=== PATIENT | male | born 1985 | race Caucasian/White ===

== ENCOUNTER 2017-02-10 18:25 | Emergency (ER) | payer SELFPAY ==
[2017-02-10] MEDS ORDERED: NORMAL SALINE 1000 ML 1,000 ML IV ONE (19:00)
--- NOTE | 2017-02-10 19:02 | ER Document Report ---
ED Substance Abuse / Acc. OD - General Mode of Arrival: Medic Information source: Patient - HPI Patient complains to provider of: Alcohol abuse, Other - depression Similar symptoms previously: Yes Recently seen / treated by doctor: No <RANJANA GALLAGHER - Last Filed: 02/10/17 23:26> <DENNISEKEVINCARISA - Last Filed: 02/10/17 23:31> - General Chief Complaint: ETOH Abuse Stated Complaint: DEPRESSION Time Seen by Provider: 02/10/17 18:39 - HPI Notes: Patient is a 31 year old male presenting to the emergency department for depression and alcohol abuse. Patient's friend called EMS to bring the patient into the emergency department for evaluation because he has not acting like himself. Patient states that he is depressed. Patient denies suicidal ideation or homicidal ideation. Patient states that he has not been able to sleep and when he does he only can sleep for a few hours. Patient states he has been drinking 1 23 oz [employer] every day. Patient states he has been laying down for greater than 1 week. Patient states that he has not been eating and only drinking alcohol. Patient states his last drink was shortly before EMS arrived. Patient states that he has a 10-year-old in [place] and he came to [place] from [place] after losing his job. Patient states he does not have a car or ability to drive and see his child. Patient states that he has had some diarrhea recently. Patient also states that he has previously had withdrawal symptoms from alcohol. Patient states he has had EtOH withdrawal about 10 times since 2014 when he was hospitalized for EtOH withdrawal. Patient states that his withdrawal symptoms are lucid dreams, sweats, and frequently being scared or jumpy. Patient states that he also smoked weed yesterday which allowed him to be able to eat some macaroni and cheese; which the patient states that he vomited just after eating macaroni and cheese. Patient has never been officially diagnosed with depression and states that he has not had any treatment for depression either. Patient has no known drug allergies. (RANJANA GALLAGHER) - Related Data Allergies/Adverse Reactions: No Known Drug Allergies Allergy (Verified 02/10/17 20:02) Past Medical History - General Information source: Patient - Social History Smoking Status: Current Every Day Smoker Chew tobacco use (# tins/day): No - previous user Smoking Education Provided: Yes - > 5 minutes Frequency of alcohol use: Heavy Drug Abuse: Marijuana Family History: None Patient has suicidal ideation: No Patient has homicidal ideation: No - Medical History Medical History: Negative Surgical Hx: Negative <NANETTERANJANA LUTZ - Last Filed: 02/10/17 23:26> Review of Systems - Review of Systems Constitutional: No symptoms reported EENT: No symptoms reported Cardiovascular: No symptoms reported Respiratory: No symptoms reported Gastrointestinal: No symptoms reported Genitourinary: No symptoms reported Male Genitourinary: No symptoms reported Musculoskeletal: No symptoms reported Skin: No symptoms reported Hematologic/Lymphatic: No symptoms reported Neurological/Psychological: See HPI, Depression, Other - EtOH Abuse -: Yes All other systems reviewed and negative <ELLIOTTRANJANA - Last Filed: 02/10/17 23:26> Physical Exam <RANJANA GALLAGHER - Last Filed: 02/10/17 23:26> <CARISA CHANEY - Last Filed: 02/10/17 23:31> - Vital signs Vitals: Resp 16 02/10/17 18:26 - Notes Notes: GENERAL: Alert, interacts well. No acute distress. HEAD: Normocephalic, atraumatic. EYES: Pupils equal, round, and reactive to light. Extraocular movements intact. ENT: Oral mucosa moist, tongue midline. NECK: Full range of motion. Supple. Trachea midline. LUNGS: Clear to auscultation bilaterally, no wheezes, rales, or rhonchi. No respiratory distress. HEART: Regular rate and rhythm. No murmurs, gallops, or rubs. ABDOMEN: Soft, non-tender. Non-distended. Bowel sounds present in all 4 quadrants. EXTREMITIES: Moves all 4 extremities spontaneously. No edema, radial and dorsalis pedis pulses 2/4 bilaterally. No cyanosis. NEUROLOGICAL: Alert and oriented x3. Normal speech. Biceps and patellar DTRs 2+ bilaterally. PSYCH: Resigned, flat affect. Becomes tearful at the end of the conversation. SKIN: Warm, dry, normal turgor. No rashes or lesions noted. (RANJANA GALLAGHER) Course - Laboratory Result Diagrams: 02/10/17 18:41 02/10/17 20:40 <RANJANA GALLAGHER - Last Filed: 02/10/17 23:26> - Laboratory Result Diagrams: 02/10/17 18:41 02/10/17 20:40 <CARISA CHANEY - Last Filed: 02/10/17 23:31> - Re-evaluation Re-evalutation: 02/10/17 22:25 CBC unremarkable, CMP shows elevated LFTs with an AST of 2 9, and ALT of 128, alkaline phosphatase is normal, thyroid function unremarkable, urinalysis grossly unremarkable, urine drug screen negative, salicylates and acetaminophen undetectable, serum alcohol level is 255. No evidence of withdrawal. Discussed with patient that given his alcohol level she is likely drinking more than he is admitting to. Discussed with patient that he has no signs of withdrawal however the fact that he is telling me he has been in alcohol withdrawal 10 times in the past 3 years he is likely an alcoholic and needs to seek help stopping drinking. Patient is not suicidal or homicidal, patient does not want to take any medications for depression. Discussed with him the need to see a counselor and begin talk therapy for depression. Patient is stable for discharge, will be given a limited amount of Librium to help with any withdrawal symptoms he may develop. Counseled regarding cigarette smoking. Discharged home. (CARISA CHANEY ) - Vital Signs Vital signs: Temp Pulse Resp BP Pulse Ox 97.9 F 62 18 132/80 H 99 02/10/17 23:05 02/10/17 23:05 02/10/17 23:05 02/10/17 23:05 02/10/17 23:05 - Laboratory Laboratory results interpreted by me: 02/10/17 02/10/17 02/10/17 18:41 20:20 20:40 RBC 4.33 L MCV 106 H MCH 36.3 H RDW 14.6 H Carbon Dioxide 32 H Direct Bilirubin 0.5 H AST 209 H ALT 128 H Albumin 3.3 L Urine Urobilinogen 2.0 H Salicylates < 1.0 L Acetaminophen < 10 L - EKG Interpretation by Me Additional EKG results interpreted by me: 02/10/17 22:26 EKG shows sinus rhythm at a rate of 80, normal axis, normal intervals, slight ST segment elevation consistent with early repolarization, no discordant T-wave inversions per my interpretation. (CARISA CHANEY) Discharge <RANJANA GALLAGHER - Last Filed: 02/10/17 23:26> <CARISA CHANEY - Last Filed: 02/10/17 23:31> - Discharge Clinical Impression: Alcohol abuse, Tobacco abuse, Tobacco abuse counseling, Prehypertension Depression Qualifiers: Depression Type: major depressive disorder Major depression recurrence: recurrent Active/Remission status: currently active Major depression episode severity: moderate Qualified Code(s): F33.1 - Major depressive disorder, recurrent, moderate Condition: Stable Disposition: HOME, SELF-CARE Additional Instructions: Depression Your evaluation reveals that you have depression. While symptoms may be vague, they often include disturbance of sleep, fatigue, loss of appetite, and general loss of interest in life. While depression may be a side effect of drugs, or a reaction to a major change in your life, many cases have no known cause. If depression is acute, and related to a major loss in your life, you can expect it to clear completely with time. If you have been depressed a long time , are prone to repeated bouts of depression or low mood, or have been thinking of suicide, get help. Depression can be treated with anti-depressant medication and/or counselling. Long-term depression will often take a few weeks to clear, even with appropriate medication. Follow-up care is important. Contact your physician, the hospital emergency center, crisis line, or your counsellor if you are losing control or having self-destructive thoughts. Please go to sleep at the same time every night and wake up at the same time every morning, try to get 10 hours of sleep a night. Do not take naps during the day if you can avoid it. At most take 1 nap during the day while you are adjusting to a regular sleep schedule. Please make sure to get outside for at least an hour of sunshine every day. Exercise can help as well. Prescriptions: Chlordiazepoxide HCl [Librium 25 mg Capsule] 1 cap PO ASDIR PRN #7 capsule PRN Reason: Forms: Smoking Cessation Education, Elevated Blood Pressure Scribe Attestation: 02/10/17 23:31 I personally performed the services described in the documentation, reviewed and edited the documentation which was dictated to the scribe in my presence, and it accurately records my words and actions. (CARISA CHANEY) Scribe Documentation - Scribe Written by Aurora:: Aurora Mendez, 02/10/2017, 20:43 acting as scribe for :: Michael <RANJANA GALLAGHER - Last Filed: 02/10/17 23:26>
[2017-02-10 19:28] LABS: ABSOLUTE BASOPHILS # (AUTO) 0.1 10^3/uL (0.0-0.2); ABSOLUTE EOSINOPHILS # (AUTO) 0.1 10^3/uL (0.0-0.6); ABSOLUTE LYMPHOCYTES (AUTO) 1.3 10^3/uL (0.5-4.7); ABSOLUTE MONOCYTES (AUTO) 0.6 10^3/uL (0.1-1.4); ABSOLUTE NEUT (AUTO) 4.1 10^3/uL (1.7-8.2); BASOPHILS % (AUTO) 0.9 % (0-2); EOSINOPHILS % (AUTO) 2.2 % (0-6); HEMATOCRIT 45.9 % (37.9-51.0); HEMOGLOBIN 15.7 g/dL (13.5-17.0); HGB HCT DIFFERENCE 1.2; LYMPHOCYTES % (AUTO) 20.9 % (13-45); MEAN CORPUSCULAR HEMOGLOBIN 36.3 pg (27.0-33.4); MEAN CORPUSCULAR HGB CONC 34.3 g/dL (32.0-36.0); MEAN CORPUSCULAR VOLUME 106 fl (80-97); MONOCYTES % (AUTO) 9.9 % (3-13); RED BLOOD COUNT 4.33 10^6/uL (4.35-5.55); RED CELL DISTRIBUTION WIDTH 14.6 % (11.5-14.0); SEGMENTED NEUTROPHILS % (AUTO) 66.1 % (42-78); WHITE BLOOD COUNT 6.2 10^3/uL (4.0-10.5)
[2017-02-10 20:42] LABS: AMORPHOUS SEDIMENT,URINE TRACE /HPF; APPEARANCE,URINE CLOUDY; BILIRUBIN,URINE NEGATIVE (NEGATIVE); GLUCOSE, URINE NEGATIVE (NEGATIVE); KETONES,URINE NEGATIVE (NEGATIVE); LEUKOCYTE ESTERASE,URINE NEGATIVE (NEGATIVE); NITRITE,URINE NEGATIVE (NEGATIVE); PROTEIN,URINE NEGATIVE (NEGATIVE); URINE SPECIFIC GRAVITY 1.016
[2017-02-10 20:53] LABS: URINE BARBITURATES SCREEN NEGATIVE; URINE METHADONE SCREEN NEGATIVE; URINE OPIATES LOW NEGATIVE; URINE PHENCYCLIDINE SCREEN NEGATIVE
[2017-02-10 21:13] LABS: ALANINE AMINOTRANSFERASE 128 U/L (21-72); ALBUMIN 3.3 g/dL (3.5-5.0); ALCOHOL 255 mg/dL (NONE DETECTED); ALKALINE PHOSPHATASE 71 U/L (38-126); ANION GAP 8 (5-19); ASPARTATE AMINO TRANSFERASE 209 U/L (17-59); BILIRUBIN,DIRECT 0.5 mg/dL (0.0-0.4); BILIRUBIN,TOTAL 0.9 mg/dL (0.2-1.3); BLOOD UREA NITROGEN 13 mg/dL (7-20); CALCIUM 8.5 mg/dL (8.4-10.2); CARBON DIOXIDE 32 mmol/L (22-30); CHLORIDE 102 mmol/L (98-107); CREATININE RESULT 0.75 mg/dL (0.52-1.25); GLUCOSE 102 mg/dL (75-110); POTASSIUM 4.2 mmol/L (3.6-5.0); TOTAL PROTEIN 6.4 g/dL (6.3-8.2)
[2017-02-10 21:29] LABS: FREE T3 4.15 pg/mL (2.77-5.27)
[2017-02-10 21:43] LABS: THYROID STIMULATING HORMONE 0.93 uIU/mL (0.47-4.68)
--- NOTE | 2017-02-10 22:49 | EKG REPORT ---
SEVERITY:- OTHERWISE NORMAL ECG - SINUS RHYTHM BORDERLINE RIGHT AXIS DEVIATION ST ELEV, PROBABLE NORMAL EARLY REPOL PATTERN : Confirmed by: Jericho Hilliard MD 10-Feb-2017 22:48:37
[2017-02-10 23:06] VITALS: BP 132/80
== END 2017-02-10 23:23 | disposition home or self-care (01) ==
LOC: ER 18:25
DX: F10.10 Alcohol abuse, uncomplicated (principal); Y90.8 Blood alcohol level of 240 mg/100 ml or more; F33.1 Major depressive disorder, recurrent, moderate; F17.210 Nicotine dependence, cigarettes, uncomplicated; Z71.6 Tobacco abuse counseling; R19.7 Diarrhea, unspecified; R74.0 Nonspecific elevation of levels of transaminase and lactic acid dehydrogenase [LDH]; R03.0 Elevated blood-pressure reading, without diagnosis of hypertension
CPT/HCPCS: 93005; 99406; 99284; 36415; 84439; 80307 ×4; 84443; 85025; 80053; 81001; 84481; 93010; J7030